=== PATIENT | female | born 1945 | race Caucasian/White ===

== ENCOUNTER 2018-10-09 14:32 | Outpatient (CLI) | payer MEDICARE, OTHER | END 2018-10-09 14:33 | disposition home or self-care (01) | LOC: LAB.S 14:32 | PROVIDERS: ATTEND Internal Medicine | DX: Z53.9 Procedure and treatment not carried out, unspecified reason (principal) ==

== ENCOUNTER 2018-10-10 13:10 | Outpatient (CLI) | payer MEDICARE, OTHER ==
--- NOTE | 2018-10-11 15:26 | XRAY Report ---
Reason: CHRONIC PAIN RT KNEE M25.561,G89.29 Procedure Date: 10/10/2018 Accession Number: [id number] / [id number] Procedure: XRS - Knee 4 View RT CPT Code: FULL RESULT: EXAM: RIGHT KNEE RADIOGRAPHY EXAM DATE: 10/10/2018 01:27 PM. CLINICAL HISTORY: Right knee pain. COMPARISON: None. TECHNIQUE: 4 views. FINDINGS: Bones: Normal. No fractures or bone lesions. Joints: Degenerative changes are seen in the medial and patellofemoral compartment, minimal. Alignment is preserved. No significant joint effusion. Soft Tissues: Normal. No soft tissue swelling. IMPRESSION: No acute findings. 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 [facility]
== END 2018-10-10 13:11 | disposition home or self-care (01) ==
LOC: DI.S 13:10
PROVIDERS: ATTEND Family Medicine
DX: M17.11 Unilateral primary osteoarthritis, right knee (principal)

== ENCOUNTER 2021-07-01 13:27 | Outpatient (CLI) | payer MEDICARE, OTHER ==
[2021-07-01 20:07] LABS: ESTIMATED AVERAGE GLUCOSE 117 mg/dL (70-100); HEMOGLOBIN A1c% 5.7 % (4.27-6.07)
== END 2021-07-01 13:28 | disposition home or self-care (01) ==
LOC: LAB.S 13:27
DX: E11.22 Type 2 diabetes mellitus with diabetic chronic kidney disease (principal); N18.31 Chronic kidney disease, stage 3a
CPT/HCPCS: 36415; 83036

== ENCOUNTER 2021-11-29 14:22 | Outpatient (CLI) | payer MEDICARE, OTHER ==
[2021-11-29 20:41] LABS: ESTIMATED AVERAGE GLUCOSE 114 mg/dL (70-100); HEMOGLOBIN A1c% 5.6 % (4.27-6.07)
== END 2021-11-29 14:23 | disposition home or self-care (01) ==
LOC: LAB.S 14:22
PROVIDERS: ATTEND Physician Assistant Medical
DX: E11.22 Type 2 diabetes mellitus with diabetic chronic kidney disease (principal); N18.31 Chronic kidney disease, stage 3a
CPT/HCPCS: 36415; 83036

== ENCOUNTER 2022-08-15 14:29 | Outpatient (CLI) | payer MEDICARE, OTHER ==
[2022-08-15 20:58] LABS: ESTIMATED AVERAGE GLUCOSE 128 mg/dL (70-100); HEMOGLOBIN A1c% 6.1 % (4.27-6.07)
== END 2022-08-15 14:30 | disposition home or self-care (01) ==
LOC: LAB.S 14:29
PROVIDERS: ATTEND Physician Assistant
DX: E11.69 Type 2 diabetes mellitus with other specified complication (principal); E78.5 Hyperlipidemia, unspecified
CPT/HCPCS: 36415; 83036

== ENCOUNTER 2023-08-25 10:45 | Outpatient (CLI) | payer MEDICARE, OTHER | END 2023-08-25 23:59 | disposition EMS.NT | LOC: EMS 10:45 | DX: Z03.89 Encounter for observation for other suspected diseases and conditions ruled out (principal); W01.0XXA Fall on same level from slipping, tripping and stumbling without subsequent striking against object, initial encounter; Y93.01 Activity, walking, marching and hiking; Y92.29 Other specified public building as the place of occurrence of the external cause ==